=== PATIENT | male | born 1980 | race Caucasian/White ===

== ENCOUNTER 2018-09-16 05:25 | Emergency (ER) | payer SELFPAY, MEDICAID ==
[2018-09-16] MEDS: IBUPROFEN 600 MG TAB PO (06:35)
== END 2018-09-16 06:40 | disposition home or self-care (01) ==
LOC: FTE 05:25
DX: S40.012A Contusion of left shoulder, initial encounter (principal); S50.12XA Contusion of left forearm, initial encounter; S60.052A Contusion of left little finger without damage to nail, initial encounter; S60.511A Abrasion of right hand, initial encounter; S80.812A Abrasion, left lower leg, initial encounter; V49.40XA Driver injured in collision with unspecified motor vehicles in traffic accident, initial encounter
CPT/HCPCS: 99282